=== PATIENT | male | born 2000 | race Two or more races ===

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

== ENCOUNTER 2025-02-22 21:01 | Emergency (ER) | payer MEDICAID ==
[~2025-02-22] VITALS: Ht 177.8 cm; Wt 70.5 kg
[2025-02-22 21:04] VITALS: TEMP 98.1
[2025-02-22] MEDS ORDERED: ERY05OO OP (21:44)
--- NOTE | 2025-02-22 21:44 | ED.PDOC ---
Eye-HPI HPI Comments 24-year-old male presents to ER with right eye complaint x two days. Patient reports he has been experiencing redness/swelling to right lower eyelid x2 days with associated white drainage to this region x1 day. Reports he has been using [id number] "stye relief" medication with some improvement. Denies fever, vision changes, injury or any further symptoms/complaints Chief Complaint: Eye Problem Time Seen by MD: 21:08 Primary Care Provider: DR GARSIA Reviewed Notes: Nurses Notes, Medications, Allergies Allergies: Coded Allergies: NO KNOWN ALLERGIES (Unverified , 12/17/16) Home Meds Active Scripts Erythromycin (Erythromycin) 5 Mg/Gm Oin, 1 MG OP 6XD for 7 Days, #1 OIN 0 Refills Prov:TRINITY FRANCIS 02/22/25 Information Source: Patient Mode of Arrival: Ambulatory Past Medical History PAST MEDICAL HISTORY: Denies Surgical History: Denies all surgeries Family History Family History: Unknown Social History Smoker: Non-Smoker Alcohol: Denies ETOH Use Drugs: Denies Drug Use Lives In: Home Constitutional: denies: chills, diaphoresis, fatigue, fever, malaise, sweats, w eakness, others EENTM: reports: others (As stated in HPI) Respiratory: denies: cough, hemoptysis, orthopnea, SOB at rest, shortness of breath, SOB with excertion, stridor, wheezing, others Cardiovascular: denies: chest pain, dizzy spells, diaphoresis, Dyspnea on exertion, edema, irregular heart beat, left arm pain, lightheadedness, palpitations, PND, syncope, others Gastrointestinal: denies: abdomen distended, abdominal pain, blood streaked bowels, constipated, diarrhea, dysphagia, difficulty swallowing, hematemesis, melena, nausea, poor appetite, poor fluid intake, rectal bleeding, rectal pain, vomiting, others Genitourinary: denies: burning, dysuria, flank pain, frequency, hematuria, incontinence, penile discharge, penile sore, pain, testicle pain, testicle swelling, urgency, others Neurological: denies: dizziness, fainting, headache, left sided numbness, left sided weakness, numbness, paresthesia, pre-existing deficit, right sided numbness, right sided weakness, seizure, speech problems, tingling, tremors, weakness, others Musculoskeletal: denies: back pain, gout, joint pain, joint swelling, muscle pain, muscle stiffness, neck pain, others Integumetry: reports: others (As stated in HPI) Allergic/Immunocompromised: denies: Difficulty Healing, Frequent Infections, Hives, Itching, others Hematologic/Lymphatic: denies: anemia, blood clots, easy bleeding, easy bruising, swollen glands, others Endocrine: denies: excessive hunger, excessive sweating, excessive thirst, excessive urination, flushing, intolerance to cold, intolerance to heat, unexplained weight gain, unexplained weight loss, others Psychiatric: denies: anxiety, bipolar disorder, depression, hopeless, panic disorder, schizophrenia, sleepless, suicidal, others Physical Exam General Appearance: No Apparent Distress HEENT: PERRL/EOMI, Other (Mild swelling/erythema/TTP noted to medial aspect of right lower eyelid without drainage, no subconjunctival injection or foreign body appreciated) Neck: Full Range of Motion, Non-Tender, Normal Respiratory: Chest Non-Tender, Lungs Clear, No Accessory Muscle Use, No Respiratory Distress, Normal Breath Sounds Cardiovascular: No Murmur, No Gallop, Regular Rate/Rhythm Breast Exam: Deferred Gastrointestinal: NOT DONE Genitalia: Deferred Pelvic: Deferred Rectal: Deferred Extremities: Normal capillary refill, Normal range of motion Neurologic: Alert, No Motor Deficits, Normal Affect, Normal Mood, No Sensory Deficits Cerebellar Function: Normal Reflexes: Normal Skin: Dry, Warm Lymphatic: No Adenopathy Was a procedure done? Was a procedure done?: No Sedation Sedation?: No EENT DIFF Eye: Corneal Abrasion, Foreign Body-Corneal, Orbital Cellulits, Periorbital Cellulits X-Ray, Labs, Meds, VS Vital Signs Date Time Temp Pulse Resp B/P (MAP) Pulse Ox O2 Delivery O2 Flow Rate FiO2 02/22/25 21:04 98.1 67 18 130/71 97 98.1 Erythromycin ointment ordered, patient educated on proper use/dosage Advised to alternate warm compresses on/off Advised to follow up with Ophthalmology in one week if symptoms do not improve Advised to follow up with PCP in 1-2 days Patient verbalized understanding agreeable with current plan of care Advised to return to ER immediately if symptoms worsen Time of 1ST Reevaluation: 21:20 Reevaluation 1ST: N/A Patient Education/Counseling: Diagnosis, Treatment, Prognosis, Need For Follow Up Family Education/Counseling: No Family Present SEPSIS Sepsis Screen Date sepsis recognized/suspect: Feb 22, 2025 Time Sepsis recognized/suspect: 2110 Recent Procedure: No On Antibiotic Therapy: No Respiratory Rate >20: No Heart Rate >90: No Temp<36 C (96.8 F) or >38.3 C: No SBP <90 or MAP <65 mmHG: No New Acute Mental Status Change: No Is the patient on CPAP, BIPAP,: No Physician Orders Erythromy Opth Oint 5mg/Gm 1gm (02/22/25 21:45) Vital Signs Date Time Temp Pulse Resp B/P (MAP) Pulse Ox O2 Delivery O2 Flow Rate FiO2 02/22/25 21:04 98.1 67 18 130/71 97 98.1 Departure 1 Departure Time of Disposition: 21:43 Impression: Primary Impression: Hordeolum externum of right lower eyelid Disposition: 01 HOME / SELF CARE / HOMELESS Condition: Stable e-Prescriptions Erythromycin (Erythromycin) 5 Mg/Gm Oin 1 MG OP 6XD for 7 Days, #1 OIN 0 Refills Prov: TRINITY FRANCIS 02/22/25 Discharged With: Self Critical Care Note Critical Care Time?: No Stability Stability form required: No Heart Score Heart Score: Heart Score Response (Comments) Value History N/A 0 EKG N/A 0 Age N/A 0 Risk Factors N/A 0 Troponin N/A 0 Total 0 TRINITY FRANCIS Feb 22, 2025 21:44
[2025-02-22] MEDS: ERYTHROMY OPTH OINT 5mg/gm 1gm or 3.5gm tube OP ONE (21:47)
[2025-02-22 21:55] VITALS: BP 130/73; PULSE 67; RESP 18; O2SAT 100
== END 2025-02-22 21:56 | disposition home or self-care (01) ==
LOC: ER 21:01
DX: H00.012 Hordeolum externum right lower eyelid (principal)
CPT/HCPCS: 99282; J7030